=== PATIENT | female | born 1980 | race Asian ===

== ENCOUNTER 2016-08-24 09:41 | Emergency (ER) | payer OTHER, MEDICAID ==
[2016-08-24] MEDS ORDERED: NS 0.9% 1000 ML* 1,000 ML IV ONE (11:06)
[2016-08-24] MEDS ORDERED: Meclizine TAB* 12.5 MG PO ONE (11:06)
[2016-08-24] MEDS ORDERED: Ondansetron INJ* 2 MG/ML VIAL IV ONE (11:06)
--- NOTE | 2016-08-24 11:50 | RAD ---
Indication: Dizziness. Single frontal view of the chest performed at 1119 hours was reviewed. Comparison is made with previous exam dated July 03, 2009. No mediastinal shift is noted. Heart is of normal size and configuration. Lung reyes appear clear. IMPRESSION: NO ACTIVE CARDIOPULMONARY DISEASE IS NOTED.
[2016-08-24 11:57] LABS: Hematocrit 39 % (35-47); Hemoglobin 12.8 g/dl (12.0-16.0); Mean Corpuscular HGB Conc 33 g/dl (31-36); Mean Corpuscular Hemoglobin 30 pg (27-31); Mean Corpuscular Volume 89 fL (80-97); Mean Platelet Volume 10 um3 (7.4-10.4); Red Blood Count 4.33 10^6/ul (4.0-5.4); Red Cell Distribution Width 13 % (10.5-15)
[2016-08-24 12:14] LABS: ALT 11 U/L (7-52); AST 16 U/L (13-39); Albumin 4.2 g/dL (3.2-5.2); Alkaline Phosphatase 44 U/L (34-104); Anion Gap 6 mmol/L (2-11); BUN/Creatinine Ratio 32.5 (8-20); Blood Urea Nitrogen 13 mg/dL (6-24); C Reactive Protein < 1.00 mg/L (< 5.00); CO2 Carbon Dioxide 24 mmol/L (22-32); Calcium 9.1 mg/dL (8.6-10.3); Chloride 103 mmol/L (101-111); Creatine Kinase 39 U/L (10-223); EGFR African American 233.6 (>60); EGFR Non-African American 181.6 (>60); Globulin 3.4 g/dL (2-4); Glucose 107 mg/dL (70-100); Potassium 3.5 mmol/L (3.5-5.0); Sodium 133 mmol/L (133-145); Total Protein 7.6 g/dL (6.4-8.9)
[2016-08-24 12:31] LABS: Urine Bacteria Absent (Absent); Urine Bilirubin Negative (Negative); Urine Glucose Negative (Negative); Urine Nitrite Negative (Negative)
[2016-08-24 12:43] LABS: Benzodiazepine Urine Screen None Detected (None Detect)
[2016-08-24 12:43] LABS: TSH (Thyroid Stimulating Horm) 0.74 mcIU/mL (0.34-5.60)
[2016-08-24 13:37] VITALS: BP 113/74
--- NOTE | 2016-08-24 14:58 | ED ---
Champ Huerta Billy, scribed for Gurdeep Gamino MD on 08/24/16 at 1101 . Dizziness - HPI Summary HPI Summary: Patient is a 36 year-old female coming to [facility] presenting with onset of room- spinning dizziness starting at 0630 this morning. Symptoms worse with any change in head position, improved with rest and closed eyes. She reports nausea and vomiting. Denies earache, postnasal drip, fevers, chills, headache, chest pain, SOB, or diarrhea. Denies any similar symptoms. - History Of Current Complaint Chief Complaint: EDDizziness Stated Complaint: DIZZY/VOMITING Time Seen by Provider: 08/24/16 10:52 Hx Obtained From: Patient Onset/Duration: Still Present Timing: Hours Severity Initially: Moderate Severity Currently: Moderate Character: Room Spinning Aggravating Factor(s): Change In Head Position Alleviating Factor(s): Lying Down, Closing Eyes Associated Signs And Symptoms: Positive: Nausea, Vomiting. Negative: Diarrhea, Chest Pain, SOB, Fever, Chills - Allergies/Home Medications Allergies/Adverse Reactions: Allergies Allergy/AdvReac Type Severity Reaction Status Date / Time No Known Allergies Allergy Verified 07/03/15 15:03 PMH/Surg Hx/FS Hx/Imm Hx Endocrine/Hematology History: Denies: Hx Diabetes Cardiovascular History: Denies: Hx Hypertension History: Denies: Hx Dialysis, Hx Renal Disease - Cancer History Hx Chemotherapy: No Hx Radiation Therapy: No Infectious Disease History: No Infectious Disease History: Denies: Traveled Outside the [place] in Last 30 Days - Family History Known Family History: Positive: None - denies illness in living relatives - Social History Alcohol Use: None Substance Use Type: Reports: None Smoking Status (MU): Never Smoked Tobacco Review of Systems Negative: Fever, Chills Negative: Ear Ache, Nasal Discharge Negative: Chest Pain Negative: Shortness Of Breath Positive: Vomiting, Nausea. Negative: Diarrhea Neurological: Other - dizziness Negative: Headache All Other Systems Reviewed And Are Negative: Yes Physical Exam - Summary Physical Exam Summary: The patient is well-nourished in no acute distress and in no acute pain. The skin is warm and dry and skin color reflects adequate perfusion. HEENT: The head is normocephalic and atraumatic. The pupils are equal and reactive. The conjunctivae are clear and without drainage. Nares are patent and without drainage. Mouth reveals moist mucous membranes and the throat is without erythema and exudate. The external ears are intact. The ear canals are patent and without drainage. The tympanic membranes are intact. Neck is supple with full range of motion and non-tender. There are no carotid bruits. There is no neck vein distension. Respiratory: Chest is non-tender. Lungs are clear to auscultation and breath sounds are symmetrical and equal. Cardiovascular: Hear is regular rate and rhythm. There is no murmur or rub auscultated. There is no peripheral edema and pulses are symmetrical and equal. Abdomen: The abdomen is soft and non-tender. There are normal bowel sounds heard in all four quadrants and there is no organomegaly palpated. Musculoskeletal: There is no back pain noted. Extremities are non-tender with full range of motion. There is good capillary refill. There is no peripheral edema or calf tenderness elicited. Neurological: Patient is alert and oriented to person, place and time. The patient has symmetrical motor strength in all four extremities. Cranial nerves are grossly intact. Deep tendon reflexes are symmetrical and equal in all four extremities. No focal neurological deficits. Psychiatric: The patient has an appropriate affect and does not exhibit any anxiety or depression. Triage Information Reviewed: Yes Vital Signs On Initial Exam: Initial Vitals Temp Pulse Resp BP Pulse Ox 97.5 F 73 20 109/62 98 08/24/16 09:43 08/24/16 09:43 08/24/16 09:43 08/24/16 09:43 08/24/16 09:43 Vital Signs Reviewed: Yes Diagnostics - Vital Signs Vital Signs Temp Pulse Resp BP Pulse Ox 08/24/16 10:35 98.4 F 80 16 110/75 100 08/24/16 09:43 97.5 F 73 20 109/62 98 - Laboratory Lab Results: Lab Results 08/24/16 08/24/16 08/24/16 Range/Units 11:40 11:40 11:40 WBC 10.0 (3.5-10.8) 10^3/ul RBC 4.33 (4.0-5.4) 10^6/ul Hgb 12.8 (12.0-16.0) g/dl Hct 39 (35-47) % MCV 89 (80-97) fL MCH 30 (27-31) pg MCHC 33 (31-36) g/dl RDW 13 (10.5-15) % Plt Count 137 L (150-450) 10^3/ul MPV 10 (7.4-10.4) um3 Neut % (Auto) 87.4 H (38-83) % Lymph % (Auto) 9.8 L (25-47) % Carver % (Auto) 2.6 (1-9) % Eos % (Auto) 0 (0-6) % Baso % (Auto) 0.2 (0-2) % Absolute Neuts (auto) 8.7 H (1.5-7.7) 10^3/ul Absolute Lymphs (auto) 1.0 (1.0-4.8) 10^3/ul Absolute Monos (auto) 0.3 (0-0.8) 10^3/ul Absolute Eos (auto) 0 (0-0.6) 10^3/ul Absolute Basos (auto) 0 (0-0.2) 10^3/ul Absolute Nucleated RBC 0 10^3/ul Nucleated RBC % 0 Sodium 133 (133-145) mmol/L Potassium 3.5 (3.5-5.0) mmol/L Chloride 103 (101-111) mmol/L Carbon Dioxide 24 (22-32) mmol/L Anion Gap 6 (2-11) mmol/L BUN 13 (6-24) mg/dL Creatinine 0.40 L (0.51-0.95) mg/dL Est GFR ( Amer) 233.6 (>60) Est GFR (Non-Af Amer) 181.6 (>60) BUN/Creatinine Ratio 32.5 H (8-20) Glucose 107 H (70-100) mg/dL Lactic Acid 1.1 (0.5-2.0) mmol/L Calcium 9.1 (8.6-10.3) mg/dL Magnesium 2.0 (1.9-2.7) mg/dL Total Bilirubin 0.70 (0.2-1.0) mg/dL AST 16 (13-39) U/L ALT 11 (7-52) U/L Alkaline Phosphatase 44 (34-104) U/L Total Creatine Kinase 39 (10-223) U/L Troponin I 0.00 (<0.04) ng/mL C-Reactive Protein < 1.00 (< 5.00) mg/L B-Natriuretic Peptide ( - 100) pg/mL Total Protein 7.6 (6.4-8.9) g/dL Albumin 4.2 (3.2-5.2) g/dL Globulin 3.4 (2-4) g/dL Albumin/Globulin Ratio 1.2 (1-3) TSH 0.74 (0.34-5.60) mcIU/mL Beta HCG, Quant < 0.60 mIU/mL Urine Color Urine Appearance Urine pH (5-9) Ur Specific Duvall (1.010-1.030) Urine Protein (Negative) Urine Ketones (Negative) Urine Blood (Negative) Urine Nitrate (Negative) Urine Bilirubin (Negative) Urine Urobilinogen (Negative) Ur Leukocyte Esterase (Negative) Urine WBC (Auto) (Absent) Urine RBC (Auto) (Absent) Ur Squamous Epith Cells (Absent) Amorphous Crystals (Absent) Urine Bacteria (Absent) Urine Glucose (Negative) Urine Opiates Screen (None Detect) Ur Barbiturates Screen (None Detect) Ur Phencyclidine Scrn (None Detect) Ur Amphetamines Screen (None Detect) U Benzodiazepines Scrn (None Detect) Urine Cocaine Screen (None Detect) U Cannabinoids Screen (None Detect) 08/24/16 08/24/16 08/24/16 Range/Units 11:40 12:13 12:13 WBC (3.5-10.8) 10^3/ul RBC (4.0-5.4) 10^6/ul Hgb (12.0-16.0) g/dl Hct (35-47) % MCV (80-97) fL MCH (27-31) pg MCHC (31-36) g/dl RDW (10.5-15) % Plt Count (150-450) 10^3/ul MPV (7.4-10.4) um3 Neut % (Auto) (38-83) % Lymph % (Auto) (25-47) % Carver % (Auto) (1-9) % Eos % (Auto) (0-6) % Baso % (Auto) (0-2) % Absolute Neuts (auto) (1.5-7.7) 10^3/ul Absolute Lymphs (auto) (1.0-4.8) 10^3/ul Absolute Monos (auto) (0-0.8) 10^3/ul Absolute Eos (auto) (0-0.6) 10^3/ul Absolute Basos (auto) (0-0.2) 10^3/ul Absolute Nucleated RBC 10^3/ul Nucleated RBC % Sodium (133-145) mmol/L Potassium (3.5-5.0) mmol/L Chloride (101-111) mmol/L Carbon Dioxide (22-32) mmol/L Anion Gap (2-11) mmol/L BUN (6-24) mg/dL Creatinine (0.51-0.95) mg/dL Est GFR ( Amer) (>60) Est GFR (Non-Af Amer) (>60) BUN/Creatinine Ratio (8-20) Glucose (70-100) mg/dL Lactic Acid (0.5-2.0) mmol/L Calcium (8.6-10.3) mg/dL Magnesium (1.9-2.7) mg/dL Total Bilirubin (0.2-1.0) mg/dL AST (13-39) U/L ALT (7-52) U/L Alkaline Phosphatase (34-104) U/L Total Creatine Kinase (10-223) U/L Troponin I (<0.04) ng/mL C-Reactive Protein (< 5.00) mg/L B-Natriuretic Peptide 553 H ( - 100) pg/mL Total Protein (6.4-8.9) g/dL Albumin (3.2-5.2) g/dL Globulin (2-4) g/dL Albumin/Globulin Ratio (1-3) TSH (0.34-5.60) mcIU/mL Beta HCG, Quant mIU/mL Urine Color Yellow Urine Appearance Cloudy Urine pH 9.0 (5-9) Ur Specific Duvall 1.020 (1.010-1.030) Urine Protein 1+(30 mg/dl) H (Negative) Urine Ketones Trace H (Negative) Urine Blood Negative (Negative) Urine Nitrate Negative (Negative) Urine Bilirubin Negative (Negative) Urine Urobilinogen Negative (Negative) Ur Leukocyte Esterase Negative (Negative) Urine WBC (Auto) Absent (Absent) Urine RBC (Auto) Absent (Absent) Ur Squamous Epith Cells Present H (Absent) Amorphous Crystals Present H (Absent) Urine Bacteria Absent (Absent) Urine Glucose Negative (Negative) Urine Opiates Screen None detected (None Detect) Ur Barbiturates Screen None detected (None Detect) Ur Phencyclidine Scrn None detected (None Detect) Ur Amphetamines Screen None detected (None Detect) U Benzodiazepines Scrn None detected (None Detect) Urine Cocaine Screen None detected (None Detect) U Cannabinoids Screen None detected (None Detect) Result Diagrams: 08/24/16 11:40 08/24/16 11:40 Lab Statement: Any lab studies that have been ordered have been reviewed, and results considered in the medical decision making process. - Radiology CXR Xray Interpretation: No Acute Changes Radiology Interpretation Completed By: Radiologist - EKG 1006 EKG Interpretation: NSR 86 bpm, no ST elevation Re-Evaluation - Re-Evaluation First Eval Re-Evaluation Time: 12:25 Change: Improved Second Eval Re-Evaluation Time: 13:14 Change: Improved Comment: Labs and imaging discussed. Plan for discharge reviewed. Dizzy Course/Dx - Course Assessment/Plan: Patient is a 36 year-old female coming to [facility] presenting with onset of room-spinning dizziness starting at 0630 this morning. Symptoms worse with any change in head position, improved with rest and closed eyes. She reports nausea and vomiting. Denies earache, postnasal drip, fevers, chills, headache, chest pain, SOB, or diarrhea. Denies any similar symptoms. Bloodwork WNL except for platelets of 137, glucose of 107, and BNP of 553. However, the patient denies any SOB, bilateral lower extremity edema. UA is negative for UTI. CXR shows no acute cardiopulmonary disease. In the ED course, pt was given Zofran for nausea, IVF, and meclizine for dizziness. After these medications, the patients symptoms improved. The patient will therefore be discharged home to follow up with PCP. She was instructed to return to the ED with any worsening symptoms such as chest pain, shortness of breath, dizziness, fevers, chills, and headache. She agrees and understands and verbalizes her understanding. I did not perform a CT of the brain due to the fact that she is neurologically intact. She was instructed that if dizziness persists with medication, she should return to the ED with possible CT of the brain. She understands and agrees. I discussed all the findings and test results with the patient. Patient was instructed to return to the emergency room immediately if any of the symptoms return or worsens. Patient understands and agrees. Plan of care was discussed with the patient and patient understands and agrees with the plan of care. All questions were answered at patient satisfaction. There were no further complaints or concerns. Patient is alert and oriented x 3. Patient vital signs are stable. Patient is to follow up with primary care physician in the next 2 to 3 days. Patient understands and agrees. - Diagnoses Provider Diagnoses: Vertigo Discharge - Discharge Plan Condition: Stable Disposition: HOME Prescriptions: Meclizine TAB* [Antivert 12.5 TAB*] 25 mg PO TID PRN #30 tab PRN Reason: Vertigo Ondansetron TAB* [Zofran 4 MG Tab*] 4 mg PO Q6H PRN #10 tab PRN Reason: Vomiting Patient Education Materials: Vertigo (ED) Referrals: Shy Salmon MD [Primary Care Provider] - The documentation as recorded by the Champ steiner Billy accurately reflects the service I personally performed and the decisions made by Stevenson sykes Walter, MD.
== END 2016-08-24 13:36 | disposition home or self-care (01) ==
LOC: ED 09:41
DX: R42 Dizziness and giddiness (principal); R11.2 Nausea with vomiting, unspecified
CPT/HCPCS: 36415; 71010; 80053; 80307; 81003; 81015; 82550; 83605; 83735; 83880; 84443; 84484; 84702; 85025; 86140; 93005; 96374; 99283; A9270-GY; J2405